=== PATIENT | male | born 2000 | race American Indian/Alaskan Native ===

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

== ENCOUNTER 2023-05-24 02:59 | Emergency (ER) | payer SELFPAY ==
[2023-05-24 03:09] VITALS: BP 167/95; PULSE 96
[2023-05-24] MEDS: Take Home: Benzonatate 100 MG, 6 Cap Pack PO ONE (03:31)
== END 2023-05-24 03:34 | disposition home or self-care (01) ==
LOC: DL.ED 02:59
DX: J98.8 Other specified respiratory disorders (principal); E11.9 Type 2 diabetes mellitus without complications; E66.9 Obesity, unspecified; Z86.16 Personal history of COVID-19; Z88.0 Allergy status to penicillin; Z68.44 Body mass index [BMI] 60.0-69.9, adult
CPT/HCPCS: 99283; 99284; A9270-GY